=== PATIENT | female | born 1965 | race Caucasian/White ===

== ENCOUNTER 2016-09-06 19:10 | Emergency (ER) | payer OTHER ==
[2016-09-06 19:21] VITALS: TEMP 98.6
--- NOTE | 2016-09-06 19:33 | EDPHY ---
H & P Stated Complaint: LLE pain Time Seen by Provider: 09/06/16 19:26 - Personal History LMP (Females 10-55): 1-7 Days Ago Current Tetanus/Diphtheria Vaccine: No Current Tetanus Diphtheria and Acellular Pertussis (TDAP): No - Medical/Surgical History Hx Asthma: No Hx Chronic Respiratory Disease: No Hx Diabetes: No Hx Cardiac Disease: No Hx Renal Disease: No Hx Cirrhosis: No Hx Alcoholism: No Hx HIV/AIDS: No Hx Splenectomy or Spleen Trauma: No Other PMH: DVT left lower leg. tibial plateau fx/surgery. cholecystetomy. microdiscectomy L4-L5; - Social History Smoking Status: Never smoked Constitutional: Initial Vital Signs Temperature (C) 37 C 09/06/16 19:17 Heart Rate 70 09/06/16 19:17 Respiratory Rate 16 09/06/16 19:17 Blood Pressure 158/87 H 09/06/16 19:17 O2 Sat (%) 98 09/06/16 19:17 O2 Delivery Mode Room Air Allergies/Adverse Reactions: No Known Allergies Allergy (Verified 09/10/13 13:17) Home Medications: Medication Instructions Recorded Aspirin [Aspirin 325 mg (OTC)] 09/10/13 Medical Decision Making ED Course/Re-evaluation: CHIEF COMPLAINT: Left calf pain HISTORY OF PRESENT ILLNESS: This patient is a 51 year old female with history of prior DVT to left lower leg in 2012 who presents to the Emergency Department complaining of gradually increasing left calf pain and swelling over the past few days. She was bit by a dog on her left calf 4-5 weeks ago but states that her wound has healed appropriately. Upon arrival, she describes her pain as cramping localized to the posterior calf with no radiation. She denies any associated complaints. No chest pain, weakness, or shortness of breath. No additional pertinent medical history. REVIEW OF SYSTEMS: A 10 point review of systems was performed and is negative with the exception of the elements mentioned in the history of present illness. PHYSICAL EXAM: General Appearance: Alert, well hydrated, appropriate, and non-toxic appearing. Head: Atraumatic without scalp tenderness or obvious injury Eyes: Pupils equal, round, reactive to light and accommodation, EOMI, no trauma , no injection. Ears: Clear bilaterally, no perforation, normal landmarks Nose: Atraumatic, no rhinorrhea, clear. Throat: There is no erythema or exudates, no lesions, normal tonsils, mucus membranes moist. Neck: Supple, 2+ carotid upstroke, non-tender, no lymphadenopathy. Respiratory: No retractions, no distress, no wheezes, and no accessory muscle use. Lungs are clear to auscultation bilaterally. Cardiovascular: Regular rate and rhythm, no murmurs, rubs, or gallops. Bilateral carotid, radial, dorsalis pedis, and posterior tibial pulses intact. Good capillary refill all extremities. Gastrointestinal: Abdomen is soft, non-tender, non-distended, no masses, no rebound, no guarding, no peritoneal signs. Musculoskeletal: Normal active ROM of all extremities, atraumatic, left calf contusion with moderate induration and swelling. Neurological: Alert, appropriate, and interactive. The patient has normal DTRs and non-focal cranial nerves, motor, sensory, and cerebellar exam. Skin: No rashes, good turgor, no nodules on palpation. Past medical history: DVT to left lower leg in 2012 Past surgical history: Back surgery, cholecystectomy Social history: DIFFERENTIAL DIAGNOSIS: The differential diagnosis for the patient's leg swelling included but was not limited to hypoalbuminemia, congestive heart failure, cor pulmonale, venous stasis, trauma, and DVT. MEDICAL DECISION MAKING: Normally healthy 51-year-old female with one prior DVT to left calf presents with complaint of increasing swelling and pain to left lower calf over the past 2-3 days. Will proceed with US of the left lower extremity. 2047: US is negative for DVT, per Dr. Boogie Bhagat, radiology. I discussed these results with the patient, who is relieved. She will be discharged home in good condition with customary return precautions. Departure - Departure Disposition: Home, Routine, Self-Care Clinical Impression: Pain of left calf Condition: Good Instructions: Leg Pain (ED) Additional Instructions: 1. Follow-up with your primary care provider if you continue to experience pain or swelling to your left calf. 2. Return to the Emergency Department for worsening pain or swelling, shortness of breath, leg weakness, or for other serious concerns. Referrals: Jim Lazar MD [Primary Care Provider] - As per Instructions Report Scribed for: Saúl Keith Report Scribed by: Lily Deleon Date of Report: 09/06/16 Time of Report: 19:32
[2016-09-06 21:32] VITALS: BP 132/76; PULSE 69; RESP 16; O2SAT 98
== END 2016-09-06 21:31 | disposition home or self-care (01) ==
DX: M79.662 Pain in left lower leg (principal); Z79.82 Long term (current) use of aspirin; Z86.718 Personal history of other venous thrombosis and embolism

== ENCOUNTER → 2018-05-28 | Outpatient (CLI) | payer OTHER | LOC: FIMAGING 13:30 | DX: Z12.31 Encounter for screening mammogram for malignant neoplasm of breast (principal) ==

== ENCOUNTER → 2018-06-05 | Outpatient (CLI) | payer OTHER | LOC: FIMAGING 08:07 | DX: Z12.31 Encounter for screening mammogram for malignant neoplasm of breast (principal) ==